=== PATIENT | male | born 2000 | race African-American/Black ===

== ENCOUNTER 2021-10-25 18:34 | Emergency (ER) | payer OTHER, MEDICARE ==
[~2021-10-25] VITALS: Ht 190.5 cm; Wt 77.1 kg
[2021-10-25] MEDS ORDERED: KETOROLAC TROMETHAMINE 60 MG/2 ML VIAL IM ONE (19:15)
[2021-10-25] MEDS ORDERED: ULTRAM50 MG PO (19:48)
[2021-10-25] MEDS ORDERED: KETOROLAC TROMETHAMINE 60 MG/2 ML VIAL ONE (19:50)
[2021-10-25 20:55] VITALS: BP 148/89
== END 2021-10-25 20:55 | disposition home or self-care (01) ==
LOC: FSED 18:38
DX: M25.512 Pain in left shoulder (principal); S60.511A Abrasion of right hand, initial encounter; S80.212A Abrasion, left knee, initial encounter; S80.211A Abrasion, right knee, initial encounter; V27.4XXA Motorcycle driver injured in collision with fixed or stationary object in traffic accident, initial encounter; Y92.488 Other paved roadways as the place of occurrence of the external cause
CPT/HCPCS: 73030; 73130; 96372; 99283; J1885